=== PATIENT | female | born 1940 | race Caucasian/White ===

== ENCOUNTER 2022-09-04 14:02 | Inpatient (IN) | payer MEDICARE, OTHER ==
[2022-09-04 15:31] LABS: #Basophils 0.1 10x3/uL (0.0-0.2); #Eosinphils 0.5 10x3/uL (0.0-0.5); #Monocytes 0.4 10x3/uL (0.0-1.1); #Neutrophils 2.3 10x3/uL (1.5-8.4); %Basophils 1.2 % (0.0-2.0); %Eosinophils 12.4 % (0.0-6.0); %Lymphocytes 19.9 % (18.0-47.0); %Neutrophils 54.6 % (40.0-75.0); Mean Corpuscular HGB CONC 32.9 g/dL (32.0-36.0); Mean Corpuscular Hemoglobin 32.6 pg (27.0-33.0); Mean Corpuscular Volume 99.1 fl (81.6-98.3); Mean Platelet Volume 9.3 fl (7.4-10.4); Platelet Count 188 10x3/uL (150-450); RBC Distribution Width 12.8 % (11.5-14.5); Red Blood Cell (RBC) Count 3.37 10x6/uL (3.90-5.03); White Blood Cell (WBC) Count 4.3 10x3/uL (3.5-10.5)
[2022-09-04] MEDS ORDERED: Morphine 4 MG/ML VIAL ONE (15:40)
[2022-09-04 15:42] LABS: Anion Gap 13 mmol/L (10-20); BUN (Urea Nitrogen) 15 mg/dL (9.8-20.1); Calc. Creatinine Clearance 0 mL/min (70-130); Calcium 8.9 mg/dL (7.8-10.44); Carbon Dioxide 25 mmol/L (23-31); Chloride 103 mmol/L (98-107); Estimated GFR 58; Glucose 190 mg/dL (83-110); INR-International Normal Ratio 1.1; PTT 24.9 sec (22.0-33.0); Potassium 3.4 mmol/L (3.5-5.1); Prothrombin Time 11.5 sec (9.5-12.1); Sodium 138 mmol/L (136-145)
[2022-09-04] MEDS ORDERED: Ondansetron ODT 4 MG TAB PO PRN (16:24)
[2022-09-04] MEDS ORDERED: Calcium Carbonate 500 MG ChewTAB PO PRN (16:24)
[2022-09-04] MEDS ORDERED: Ondansetron PF 4 MG/2 ML Vial IVP PRN (16:24)
[2022-09-04] MEDS ORDERED: Acetaminophen 325 MG TAB PO PRN (16:24)
[2022-09-04] MEDS ORDERED: Senokot S 8.6-50 MG TAB PO PRN (16:24)
[2022-09-04] MEDS ORDERED: Dextrose 5% in Water 1,000 ML IV PRN (16:27)
[2022-09-04] MEDS ORDERED: Dextrose 50% Abboject 50 ML SYRINGE SLOW IVP PRN (16:27)
[2022-09-04] MEDS ORDERED: HumaLOG 300 UNITS/3 ML VIAL SC PRN ×2 (16:27)
[2022-09-04] MEDS ORDERED: Potassium Chloride 20 MEQ TAB PO SCH (16:30)
[2022-09-04] MEDS ORDERED: Morphine 2 MG/ML VIAL SLOW IVP PRN (17:00)
[2022-09-04] MEDS ORDERED: Potassium Chloride 20 MEQ TAB ONE (18:34)
[2022-09-04] MEDS ORDERED: Famotidine 20 MG TAB PO SCH (21:00)
[2022-09-04] MEDS: Morphine 2 MG/ML VIAL SLOW IVP PRN (22:31)
[2022-09-04] MEDS: Carvedilol 25 MG TAB PO SCH (22:33)
[2022-09-04] MEDS ORDERED: Sodium Chloride 0.9% 1,000 ML IV SCH (23:59)
[2022-09-05 03:15] VITALS: BMI 17.9
[2022-09-05] MEDS: Morphine 2 MG/ML VIAL SLOW IVP PRN ×2 (06:14→10:04)
[2022-09-05 06:27] LABS: ALT (SGPT) Less than 6 U/L (8-55); AST (SGOT) 22 U/L (5-34); Alkaline Phosphatase 52 U/L (40-110); Anion Gap 14 mmol/L (10-20); BUN (Urea Nitrogen) 10 mg/dL (9.8-20.1); Bilirubin, Total 0.6 mg/dL (0.2-1.2); Calc. Creatinine Clearance 44 mL/min (70-130); Calcium 8.8 mg/dL (7.8-10.44); Carbon Dioxide 23 mmol/L (23-31); Chloride 107 mmol/L (98-107); Estimated GFR 73; Globulin 4.2 g/dL (2.4-3.5); Glucose 151 mg/dL (83-110); Potassium 3.8 mmol/L (3.5-5.1); Protein, Total 7.2 g/dL (5.8-8.1); Sodium 140 mmol/L (136-145)
[2022-09-05 07:18] LABS: #Basophils 0.1 10x3/uL (0.0-0.2); #Eosinphils 0.7 10x3/uL (0.0-0.5); #Monocytes 0.5 10x3/uL (0.0-1.1); %Basophils 1.3 % (0.0-2.0); %Eosinophils 13.6 % (0.0-6.0); %Lymphocytes 17.2 % (18.0-47.0); %Neutrophils 57.1 % (40.0-75.0); Mean Corpuscular HGB CONC 32.2 g/dL (32.0-36.0); Mean Corpuscular Hemoglobin 32.3 pg (27.0-33.0); Mean Corpuscular Volume 100.3 fl (81.6-98.3); Mean Platelet Volume 10.1 fl (7.4-10.4); Platelet Count 185 10x3/uL (150-450); RBC Distribution Width 13.1 % (11.5-14.5); Red Blood Cell (RBC) Count 3.41 10x6/uL (3.90-5.03); White Blood Cell (WBC) Count 5.3 10x3/uL (3.5-10.5)
[2022-09-05 07:22] LABS: Prothrombin Time 10.9 sec (9.5-12.1)
[2022-09-05] MEDS ORDERED: Electrolyte Replacement Protocol 1 EACH FS SCH (07:30)
[2022-09-05 08:18] LABS: Magnesium 1.7 mg/dL (1.6-2.6)
[2022-09-05 08:20] LABS: Phosphorus 2.4 mg/dL (2.3-4.7)
[2022-09-05] MEDS ORDERED: Magnesium 2 GM/50 ML(in water) 2 GM in Premix Bag 1 BAG IVPB SCH (09:00)
[2022-09-05] MEDS: Lisinopril 10 MG TAB PO SCH (10:05)
[2022-09-05] MEDS: Famotidine 20 MG TAB PO SCH (10:06)
[2022-09-05] MEDS: Digoxin 0.125 MG TAB PO SCH (10:06)
[2022-09-05] MEDS: Spironolactone 25 MG TAB PO SCH (10:06)
[2022-09-05] MEDS: Carvedilol 25 MG TAB PO SCH ×2 (10:06→23:02)
[2022-09-05 12:22] LABS: SARS-CoV-2 NAA Rapid Test Not Detected (NotDetected)
[2022-09-05] MEDS ORDERED: PROPOFOL 20 ML ONE (13:14)
[2022-09-05] MEDS ORDERED: Fentanyl 100 MCG/2 ML VIAL ONE (13:14)
[2022-09-05] MEDS ORDERED: Ondansetron PF 4 MG/2 ML Vial ONE (13:15)
[2022-09-05] MEDS ORDERED: Neomycin-Polymyxin 1 ML AMP ONE (13:17)
[2022-09-05] MEDS ORDERED: CEFAZOLIN 2 GM VIAL ONE (13:37)
[2022-09-05] MEDS ORDERED: Ketamine 50 MG/ML (10ML VIAL) ONE (13:43)
[2022-09-05] MEDS ORDERED: TETANUS, DIPHTHERIA TOX,ADULT (TDVAX) 0.5 ML VIAL IM ONE (14:34)
[2022-09-05] MEDS ORDERED: Communication Order-Pharmacy FS SCH (14:45)
[2022-09-05] MEDS: HYDROcodone/Acetaminophen 5/325 mg Tablet PO PRN (23:01)
[2022-09-05] MEDS: Senokot S 8.6-50 MG TAB PO SCH (23:02)
[2022-09-05] MEDS: CEFAZOLIN 2 GM in Sodium Chloride 0.9% 100 ML IVPB SCH (23:02)
[2022-09-06] MEDS: HYDROcodone/Acetaminophen 5/325 mg Tablet PO PRN ×5 (03:15→22:03)
[2022-09-06 04:24] LABS: #Eosinphils 0.3 10x3/uL (0.0-0.5); #Monocytes 0.6 10x3/uL (0.0-1.1); #Neutrophils 2.2 10x3/uL (1.5-8.4); %Lymphocytes 25.2 % (18.0-47.0); %Monocytes 14.4 % (0.0-10.0); %Neutrophils 52.9 % (40.0-75.0); Hemoglobin 9.2 g/dL (12.0-15.5); Mean Corpuscular HGB CONC 32.1 g/dL (32.0-36.0); Mean Corpuscular Hemoglobin 32.2 pg (27.0-33.0); Mean Corpuscular Volume 100.3 fl (81.6-98.3); Mean Platelet Volume 9.9 fl (7.4-10.4); Platelet Count 147 10x3/uL (150-450); RBC Distribution Width 13.2 % (11.5-14.5); Red Blood Cell (RBC) Count 2.86 10x6/uL (3.90-5.03); White Blood Cell (WBC) Count 4.2 10x3/uL (3.5-10.5)
[2022-09-06 04:38] LABS: Anion Gap 11 mmol/L (10-20); BUN (Urea Nitrogen) 11 mg/dL (9.8-20.1); Calc. Creatinine Clearance 43 mL/min (70-130); Calcium 8.7 mg/dL (7.8-10.44); Carbon Dioxide 26 mmol/L (23-31); Chloride 107 mmol/L (98-107); Estimated GFR 70; Glucose 94 mg/dL (83-110); Magnesium 1.7 mg/dL (1.6-2.6); Potassium 3.9 mmol/L (3.5-5.1); Sodium 140 mmol/L (136-145)
[2022-09-06] MEDS ORDERED: Magnesium 2 GM/50 ML(in water) 2 GM in Premix Bag 1 BAG IVPB SCH (05:00)
[2022-09-06] MEDS: CEFAZOLIN 2 GM in Sodium Chloride 0.9% 100 ML IVPB SCH (06:08)
[2022-09-06] MEDS: Famotidine 20 MG TAB PO SCH (08:59)
[2022-09-06] MEDS: Senokot S 8.6-50 MG TAB PO SCH ×2 (08:59→22:04)
[2022-09-06] MEDS: Cyanocobalamin (Vitamin B-12) 1,000 MCG TAB PO SCH (09:00)
[2022-09-06] MEDS: Digoxin 0.125 MG TAB PO SCH (09:01)
[2022-09-06] MEDS: Lisinopril 10 MG TAB PO SCH (09:01)
[2022-09-06] MEDS: Spironolactone 25 MG TAB PO SCH (09:01)
[2022-09-06] MEDS: Folic Acid 1 MG TAB PO SCH (09:01)
[2022-09-06] MEDS: Carvedilol 25 MG TAB PO SCH ×2 (09:01→22:04)
[2022-09-07] MEDS: HYDROcodone/Acetaminophen 5/325 mg Tablet PO PRN ×5 (01:51→21:48)
[2022-09-07 07:06] LABS: Magnesium 2.1 mg/dL (1.6-2.6)
[2022-09-07] MEDS: Lisinopril 10 MG TAB PO SCH (10:10)
[2022-09-07] MEDS: Cyanocobalamin (Vitamin B-12) 1,000 MCG TAB PO SCH (10:12)
[2022-09-07] MEDS: Aspirin 81 mg Enteric Coated Tablet PO SCH (10:12)
[2022-09-07] MEDS: Digoxin 0.125 MG TAB PO SCH (10:12)
[2022-09-07] MEDS: Folic Acid 1 MG TAB PO SCH (10:12)
[2022-09-07] MEDS: Spironolactone 25 MG TAB PO SCH (10:13)
[2022-09-07] MEDS: Famotidine 20 MG TAB PO SCH (10:14)
[2022-09-07] MEDS ORDERED: Carvedilol 6.25 MG TAB PO SCH (10:15)
[2022-09-07] MEDS: Carvedilol 25 MG TAB PO SCH (10:15)
[2022-09-07] MEDS: Senokot S 8.6-50 MG TAB PO SCH ×2 (11:37→21:49)
[2022-09-07] MEDS: Carvedilol 6.25 MG TAB PO SCH (21:49)
[2022-09-08 06:04] LABS: #Eosinphils 0.4 10x3/uL (0.0-0.5); #Monocytes 0.4 10x3/uL (0.0-1.1); #Neutrophils 1.7 10x3/uL (1.5-8.4); %Basophils 0.9 % (0.0-2.0); %Eosinophils 12.6 % (0.0-6.0); %Lymphocytes 22.1 % (18.0-47.0); %Monocytes 11.4 % (0.0-10.0); %Neutrophils 52.4 % (40.0-75.0); Hemoglobin 9.2 g/dL (12.0-15.5); Mean Corpuscular HGB CONC 31.8 g/dL (32.0-36.0); Mean Corpuscular Hemoglobin 32.3 pg (27.0-33.0); Mean Corpuscular Volume 101.4 fl (81.6-98.3); Mean Platelet Volume 9.5 fl (7.4-10.4); Platelet Count 150 10x3/uL (150-450); RBC Distribution Width 12.9 % (11.5-14.5); Red Blood Cell (RBC) Count 2.85 10x6/uL (3.90-5.03); White Blood Cell (WBC) Count 3.2 10x3/uL (3.5-10.5)
[2022-09-08 06:15] LABS: Anion Gap 12 mmol/L (10-20); BUN (Urea Nitrogen) 10 mg/dL (9.8-20.1); Calc. Creatinine Clearance 53 mL/min (70-130); Calcium 8.9 mg/dL (7.8-10.44); Carbon Dioxide 26 mmol/L (23-31); Chloride 107 mmol/L (98-107); Estimated GFR 88; Glucose 88 mg/dL (83-110); Potassium 3.6 mmol/L (3.5-5.1); Sodium 141 mmol/L (136-145)
[2022-09-08] MEDS: Famotidine 20 MG TAB PO SCH (09:20)
[2022-09-08] MEDS: Lisinopril 10 MG TAB PO SCH (09:20)
[2022-09-08] MEDS: Folic Acid 1 MG TAB PO SCH (09:21)
[2022-09-08] MEDS: Cyanocobalamin (Vitamin B-12) 1,000 MCG TAB PO SCH (09:21)
[2022-09-08] MEDS: Digoxin 0.125 MG TAB PO SCH (09:21)
[2022-09-08] MEDS: Aspirin 81 mg Enteric Coated Tablet PO SCH (09:21)
[2022-09-08] MEDS: Carvedilol 6.25 MG TAB PO SCH ×2 (09:21→21:06)
[2022-09-08] MEDS: Spironolactone 25 MG TAB PO SCH (09:21)
[2022-09-08] MEDS: HYDROcodone/Acetaminophen 5/325 mg Tablet PO PRN ×2 (09:31→21:09)
[2022-09-08] MEDS: Polyethylene Glycol 3350 17 GM Packet PO PRN (16:37)
[2022-09-08] MEDS: Senokot S 8.6-50 MG TAB PO SCH ×2 (16:37→21:06)
[2022-09-09] MEDS: tiZANidine HCl 4 MG TAB PO PRN (08:54)
[2022-09-09] MEDS: Folic Acid 1 MG TAB PO SCH (08:54)
[2022-09-09] MEDS: Loratadine 10 MG TAB PO PRN (08:54)
[2022-09-09] MEDS: Cyanocobalamin (Vitamin B-12) 1,000 MCG TAB PO SCH (08:54)
[2022-09-09] MEDS: Digoxin 0.125 MG TAB PO SCH (08:54)
[2022-09-09] MEDS: Aspirin 81 mg Enteric Coated Tablet PO SCH (08:54)
[2022-09-09] MEDS: Carvedilol 6.25 MG TAB PO SCH ×2 (08:54→22:10)
[2022-09-09] MEDS: Lisinopril 10 MG TAB PO SCH ×2 (08:54→22:10)
[2022-09-09] MEDS: Famotidine 20 MG TAB PO SCH (08:54)
[2022-09-09] MEDS: Spironolactone 25 MG TAB PO SCH (08:54)
[2022-09-09] MEDS: Senokot S 8.6-50 MG TAB PO SCH ×2 (09:36→22:10)
[2022-09-09] MEDS: HYDROcodone/Acetaminophen 5/325 mg Tablet PO PRN (11:22)
[2022-09-10] MEDS: HYDROcodone/Acetaminophen 5/325 mg Tablet PO PRN ×4 (06:04→21:09)
[2022-09-10] MEDS: Polyethylene Glycol 3350 17 GM Packet PO PRN (08:52)
[2022-09-10] MEDS: Furosemide 20 MG TAB PO SCH (08:53)
[2022-09-10] MEDS: Famotidine 20 MG TAB PO SCH (08:53)
[2022-09-10] MEDS: Spironolactone 25 MG TAB PO SCH (08:53)
[2022-09-10] MEDS: Lisinopril 10 MG TAB PO SCH ×2 (08:53→21:10)
[2022-09-10] MEDS: tiZANidine HCl 4 MG TAB PO PRN (08:53)
[2022-09-10] MEDS: Digoxin 0.125 MG TAB PO SCH (08:53)
[2022-09-10] MEDS: Aspirin 81 mg Enteric Coated Tablet PO SCH (08:53)
[2022-09-10] MEDS: Carvedilol 6.25 MG TAB PO SCH ×2 (08:53→21:11)
[2022-09-10] MEDS: Cyanocobalamin (Vitamin B-12) 1,000 MCG TAB PO SCH (08:53)
[2022-09-10] MEDS: Folic Acid 1 MG TAB PO SCH (08:53)
[2022-09-10] MEDS: Loratadine 10 MG TAB PO PRN (08:53)
[2022-09-10] MEDS: Senokot S 8.6-50 MG TAB PO SCH ×2 (08:54→22:38)
[2022-09-11] MEDS: HYDROcodone/Acetaminophen 5/325 mg Tablet PO PRN ×2 (05:09→08:33)
[2022-09-11] MEDS: Digoxin 0.125 MG TAB PO SCH (08:32)
[2022-09-11] MEDS: Polyethylene Glycol 3350 17 GM Packet PO PRN (08:32)
[2022-09-11] MEDS: Aspirin 81 mg Enteric Coated Tablet PO SCH (08:32)
[2022-09-11] MEDS: Lisinopril 10 MG TAB PO SCH (08:32)
[2022-09-11] MEDS: Folic Acid 1 MG TAB PO SCH (08:33)
[2022-09-11] MEDS: Furosemide 20 MG TAB PO SCH (08:33)
[2022-09-11] MEDS: Cyanocobalamin (Vitamin B-12) 1,000 MCG TAB PO SCH (08:33)
[2022-09-11] MEDS: Spironolactone 25 MG TAB PO SCH (08:33)
[2022-09-11] MEDS: Loratadine 10 MG TAB PO PRN (08:33)
[2022-09-11] MEDS: Carvedilol 6.25 MG TAB PO SCH (08:33)
[2022-09-11] MEDS: Famotidine 20 MG TAB PO SCH (08:33)
[2022-09-11] MEDS: Senokot S 8.6-50 MG TAB PO SCH (08:34)
[2022-09-11 12:56] VITALS: TEMP 98.1
[2022-09-11 13:48] VITALS: BP 128/68
[2022-09-11] MEDS ORDERED: Famotidine 20 MG TAB PO SCH (21:00)
== END 2022-09-11 15:22 | DRG 481 ==
LOC: SUATTDRO 14:02 → CSHERS 14:02 → CSHTELE 20:53
PROVIDERS: ADMIT Internal Medicine; ATTEND Family Medicine
PROC: 0QS704Z Reposition Left Upper Femur with Internal Fixation Device, Open Approach (ICD-10-PCS; principal; 2022-09-05)
PROC: 0PSJXZZ Reposition Left Radius, External Approach (ICD-10-PCS; 2022-09-05)
DX: S72.012A Unspecified intracapsular fracture of left femur, initial encounter for closed fracture (principal); I42.9 Cardiomyopathy, unspecified; I48.21 Permanent atrial fibrillation; I50.22 Chronic systolic (congestive) heart failure; S52.572A Other intraarticular fracture of lower end of left radius, initial encounter for closed fracture; S52.692A Other fracture of lower end of left ulna, initial encounter for closed fracture; S52.502A Unspecified fracture of the lower end of left radius, initial encounter for closed fracture; Z66 Do not resuscitate; I11.0 Hypertensive heart disease with heart failure; E11.9 Type 2 diabetes mellitus without complications; I25.10 Atherosclerotic heart disease of native coronary artery without angina pectoris; W18.30XA Fall on same level, unspecified, initial encounter; E87.6 Hypokalemia; E83.42 Hypomagnesemia; Z95.0 Presence of cardiac pacemaker; Z79.82 Long term (current) use of aspirin; Z79.899 Other long term (current) drug therapy; Z20.822 Contact with and (suspected) exposure to COVID-19
CPT/HCPCS: 29105; 36415; 36416; 80048; 80053; 83735; 84100; 84484; 85025; 85610; 85730; 93005; 93010; 94760; 94762; 96374; C1713; C1769; J1650; J2270; J2272; J2405; J2704; J3010; J3475; J3490; J7050; U0002

== ENCOUNTER 2023-01-29 09:43 | Outpatient (CLI) | payer OTHER | END 2023-01-29 09:44 | disposition home or self-care (01) | LOC: CSHMAMMO 09:43 | PROVIDERS: ATTEND Internal Medicine Endocrinology, Diabetes & Metabolism | DX: M81.0 Age-related osteoporosis without current pathological fracture (principal) | CPT/HCPCS: 77080 ==

== ENCOUNTER 2023-11-20 10:17 | Outpatient (CLI) | payer OTHER | END 2023-11-20 10:18 | disposition home or self-care (01) | LOC: CSHRAD 10:17 | PROVIDERS: ATTEND Nurse Practitioner | DX: I47.20 Ventricular tachycardia, unspecified (principal) | CPT/HCPCS: 71046 ==

== ENCOUNTER 2023-11-22 10:29 | Emergency (ER) | payer OTHER ==
[2023-11-22 11:13] LABS: #Eosinphils 1.18 10x3/uL (0.0-0.5); #Neutrophils 3.05 10x3/uL (1.5-8.4); %Basophils 1.5 % (0.0-2.0); %Eosinophils 17.5 % (0.0-6.0); %Lymphocytes 24.6 % (18.0-47.0); %Monocytes 10.4 % (0.0-10.0); %Neutrophils 45.1 % (40.0-75.0); Hematocrit 40.8 % (34.9-44.5); Mean Corpuscular HGB CONC 34.3 g/dL (32.0-36.0); Mean Corpuscular Hemoglobin 31.7 pg (27.0-33.0); Mean Corpuscular Volume 92.5 fL (81.6-98.3); Mean Platelet Volume 10.1 fL (7.4-10.4); Platelet Count 249 10x3/uL (150-450); RBC Distribution Width 14.1 % (11.5-14.5); Red Blood Cell (RBC) Count 4.41 10x6/uL (3.90-5.03); White Blood Cell (WBC) Count 6.8 10x3/uL (3.5-10.5)
[2023-11-22 11:37] LABS: ALT (SGPT) 8 U/L (8-55); AST (SGOT) 28 U/L (5-34); Albumin 3.6 g/dL (3.4-4.8); Alkaline Phosphatase 59 U/L (40-110); Anion Gap 15 mmol/L (10-20); BUN (Urea Nitrogen) 24 mg/dL (9.8-20.1); Bilirubin, Total 0.7 mg/dL (0.2-1.2); Calc. Creatinine Clearance 0 mL/min (70-130); Calcium 9.9 mg/dL (7.8-10.44); Carbon Dioxide 25 mmol/L (23-31); Chloride 101 mmol/L (98-107); Estimated GFR 55; Globulin 4.9 g/dL (2.4-3.5); Glucose 139 mg/dL (83-110); Lipase 94 U/L (8-78); Potassium 3.3 mmol/L (3.5-5.1); Protein, Total 8.5 g/dL (5.8-8.1); Sodium 138 mmol/L (136-145)
[2023-11-22 11:43] LABS: Troponin I 0.025 ng/mL (< 0.028)
[2023-11-22] MEDS ORDERED: Potassium Chloride 20 MEQ TAB ONE (11:51)
== END 2023-11-22 12:46 | disposition short-term general hospital (02) ==
LOC: CSHERS 10:29
DX: I49.01 Ventricular fibrillation (principal); E11.9 Type 2 diabetes mellitus without complications; I50.9 Heart failure, unspecified; Z79.4 Long term (current) use of insulin
CPT/HCPCS: 71045; 80053; 83690; 83880; 84484; 85025; 93005

== ENCOUNTER 2024-02-01 16:58 | Inpatient (IN) | payer OTHER ==
[2024-02-01 18:22] LABS: #Basophils 0.08 10x3/uL (0.0-0.2); #Eosinphils 1.07 10x3/uL (0.0-0.5); #Neutrophils 2.29 10x3/uL (1.5-8.4); %Basophils 1.4 % (0.0-2.0); %Eosinophils 18.6 % (0.0-6.0); %Lymphocytes 29.2 % (18.0-47.0); %Monocytes 10.4 % (0.0-10.0); %Neutrophils 39.7 % (40.0-75.0); Hematocrit 36.5 % (34.9-44.5); Hemoglobin 12.2 g/dL (12.0-15.5); Mean Corpuscular HGB CONC 33.4 g/dL (32.0-36.0); Mean Corpuscular Hemoglobin 32.9 pg (27.0-33.0); Mean Corpuscular Volume 98.4 fL (81.6-98.3); Mean Platelet Volume 9.2 fL (7.4-10.4); Platelet Count 275 10x3/uL (150-450); RBC Distribution Width 14.6 % (11.5-14.5); Red Blood Cell (RBC) Count 3.71 10x6/uL (3.90-5.03); White Blood Cell (WBC) Count 5.8 10x3/uL (3.5-10.5)
[2024-02-01 18:41] LABS: ALT (SGPT) 11 U/L (8-55); AST (SGOT) 21 U/L (5-34); Albumin 3.3 g/dL (3.4-4.8); Alkaline Phosphatase 66 U/L (40-110); Anion Gap 14 mmol/L (10-20); BUN (Urea Nitrogen) 20 mg/dL (9.8-20.1); Bilirubin, Total 0.5 mg/dL (0.2-1.2); Calc. Creatinine Clearance 0 mL/min (70-130); Calcium 9.3 mg/dL (7.8-10.44); Carbon Dioxide 24 mmol/L (23-31); Chloride 105 mmol/L (98-107); Estimated GFR 45; Globulin 3.8 g/dL (2.4-3.5); Glucose 142 mg/dL (83-110); Potassium 3.2 mmol/L (3.5-5.1); Protein, Total 7.1 g/dL (5.8-8.1); Sodium 140 mmol/L (136-145)
[2024-02-01 18:48] LABS: Troponin I 0.019 ng/mL (< 0.028)
[2024-02-01] MEDS ORDERED: Magnesium 2 GM/50 ML BAG (IN WATER) ONE (19:01)
[2024-02-01] MEDS ORDERED: Potassium Bicarbonate/Cit Ac 25 MEQ TAB ONE (19:10)
[2024-02-01 19:30] LABS: Bilirubin Neg (Negative); Blood, Urine Negative (Negative); Clarity Clear (Clear); Glucose, Urine (Dipstick) 250 mg/dL (Negative); Ketone, Urine Negative (Negative); Leukocyte 25 (Negative); Nitrite Negative (Negative); Protein, Urine (Dipstick) 15 mg/dl (Neg-Trace); Specific Gravity, Urine 1.005 (1.005-1.030); Urobilinogen Normal mg/dL (Less than 2)
[2024-02-01] MEDS ORDERED: Acetaminophen 650 MG Suppository PR PRN (19:32)
[2024-02-01] MEDS ORDERED: Acetaminophen 325 MG TAB PO PRN (19:32)
[2024-02-01] MEDS ORDERED: Ondansetron PF 4 MG/2 ML Vial IVP PRN (19:32)
[2024-02-01] MEDS ORDERED: Ondansetron ODT 4 MG TAB PO PRN (19:32)
[2024-02-01] MEDS ORDERED: NS 0.9% w/ 20 MEQ KCL 1,000 ML ONE (19:40)
[2024-02-01 19:45] LABS: Magnesium 2.3 mg/dL (1.6-2.6)
[2024-02-01] MEDS ORDERED: Sodium Chloride 0.9% 1,000 ML IV SCH (19:45)
[2024-02-01 19:59] LABS: CAUTI Indications for Culture Alt mental st,lethar
[2024-02-01 20:00] LABS: Bacteria/HPF 1+ HPF (None Seen)
[2024-02-01 20:01] LABS: Urine Culture Reflex No No
[2024-02-01] MEDS ORDERED: Dextrose 5% in Water 1,000 ML IV PRN (20:07)
[2024-02-01] MEDS ORDERED: Glucagon 1 MG/ML KIT IM PRN (20:07)
[2024-02-01] MEDS ORDERED: Dextrose 50% Abboject 50 ML SYRINGE SLOW IVP PRN (20:07)
[2024-02-01] MEDS ORDERED: Insulin Lispro 100 UNIT/ML 10 ML VIAL SC PRN (20:07)
[2024-02-01 21:29] VITALS: BMI 18.1
[2024-02-01] MEDS: Potassium Chloride 20 MEQ in Premix 1 BAG IVPB SCH (22:11)
[2024-02-02 00:24] LABS: Anion Gap 13 mmol/L (10-20); BUN (Urea Nitrogen) 18 mg/dL (9.8-20.1); Calc. Creatinine Clearance 32 mL/min (70-130); Calcium 9.3 mg/dL (7.8-10.44); Carbon Dioxide 26 mmol/L (23-31); Chloride 107 mmol/L (98-107); Estimated GFR 49; Glucose 170 mg/dL (83-110); Magnesium 2.7 mg/dL (1.6-2.6); Phosphorus 3.3 mg/dL (2.3-4.7); Potassium 4.1 mmol/L (3.5-5.1); Sodium 142 mmol/L (136-145)
[2024-02-02 00:30] LABS: Troponin I 0.017 ng/mL (< 0.028)
[2024-02-02 04:46] LABS: #Basophils 0.09 10x3/uL (0.0-0.2); #Eosinphils 1.26 10x3/uL (0.0-0.5); #Monocytes 0.76 10x3/uL (0.0-1.1); #Neutrophils 2.15 10x3/uL (1.5-8.4); %Basophils 1.4 % (0.0-2.0); %Lymphocytes 31.8 % (18.0-47.0); %Monocytes 12.1 % (0.0-10.0); %Neutrophils 34.2 % (40.0-75.0); Hematocrit 37.1 % (34.9-44.5); Hemoglobin 12.3 g/dL (12.0-15.5); Mean Corpuscular HGB CONC 33.2 g/dL (32.0-36.0); Mean Corpuscular Volume 99.5 fL (81.6-98.3); Mean Platelet Volume 9.3 fL (7.4-10.4); Platelet Count 300 10x3/uL (150-450); RBC Distribution Width 14.8 % (11.5-14.5); Red Blood Cell (RBC) Count 3.73 10x6/uL (3.90-5.03); White Blood Cell (WBC) Count 6.3 10x3/uL (3.5-10.5)
[2024-02-02 04:59] LABS: Phosphorus 3.1 mg/dL (2.3-4.7)
[2024-02-02 05:00] LABS: Anion Gap 17 mmol/L (10-20); BUN (Urea Nitrogen) 17 mg/dL (9.8-20.1); Calc. Creatinine Clearance 32 mL/min (70-130); Calcium 9.1 mg/dL (7.8-10.44); Carbon Dioxide 23 mmol/L (23-31); Chloride 110 mmol/L (98-107); Estimated GFR 50; Glucose 98 mg/dL (83-110); Magnesium 2.7 mg/dL (1.6-2.6); Potassium 4.5 mmol/L (3.5-5.1); Sodium 145 mmol/L (136-145)
[2024-02-02 05:01] LABS: Troponin I 0.022 ng/mL (< 0.028)
[2024-02-02] MEDS: Amiodarone 200 MG TAB PO SCH ×2 (09:29→20:46)
[2024-02-02] MEDS: Losartan 50 MG TAB PO SCH (09:29)
[2024-02-02] MEDS: Carvedilol 12.5 MG TAB PO SCH ×2 (09:30→16:23)
[2024-02-02] MEDS: Enoxaparin 40 MG (0.4 mL) SYRINGE SC SCH (09:30)
[2024-02-02] MEDS: Spironolactone 25 MG TAB PO SCH (09:30)
[2024-02-02] MEDS ORDERED: Communication Order-Pharmacy FS SCH (15:45)
[2024-02-02] MEDS: Empagliflozin 10 MG TAB PO SCH (20:46)
[2024-02-03 04:17] LABS: Anion Gap 14 mmol/L (10-20); BUN (Urea Nitrogen) 15 mg/dL (9.8-20.1); Calc. Creatinine Clearance 35 mL/min (70-130); Calcium 8.7 mg/dL (7.8-10.44); Carbon Dioxide 22 mmol/L (23-31); Chloride 111 mmol/L (98-107); Estimated GFR 56; Glucose 108 mg/dL (83-110); Magnesium 2.3 mg/dL (1.6-2.6); Potassium 3.8 mmol/L (3.5-5.1); Sodium 143 mmol/L (136-145)
[2024-02-03] MEDS: Pioglitazone HCl 15 MG TAB PO SCH (04:53)
[2024-02-03] MEDS ORDERED: Heparin 10,000 UNITS/ 10 ML VIAL ONE (07:10)
[2024-02-03] MEDS ORDERED: Lidocaine 1% (PF) 30 ML VIAL ONE (07:10)
[2024-02-03] MEDS ORDERED: Iopamidol 300 61% 100 ML VIAL FS ONE (07:44)
[2024-02-03] MEDS ORDERED: PHENYLEPHRINE-NS 100 MCG/ML 10 ML SYRINGE ONE (08:02)
[2024-02-03] MEDS ORDERED: Atropine Sulfate 1 mg/1 ml Vial ONE (08:02)
[2024-02-03] MEDS ORDERED: Midazolam HCl 2 mg/2 ml Vial ONE (08:02)
[2024-02-03] MEDS ORDERED: fentaNYL 50 mcg/mL 1 mL Vial ONE (08:02)
[2024-02-03] MEDS ORDERED: Nitroglycerin 50 MG/250 ML BOT 0 ML ONE (08:02)
[2024-02-03] MEDS ORDERED: Acetaminophen/Codeine 30-300mg Tablet PO PRN ×2 (09:11)
[2024-02-03] MEDS ORDERED: Sodium Chloride 0.9% 200 ML IV PRN (09:11)
[2024-02-03] MEDS ORDERED: Nitroglycerin 0.4 MG TAB (25 Tab Bottle) SL PRN (09:11)
[2024-02-03 11:40] VITALS: BMI 18.1
[2024-02-03] MEDS: Potassium Chloride 10 MEQ TAB PO SCH (12:26)
[2024-02-03] MEDS: Aspirin 81 mg Enteric Coated Tablet PO SCH (12:40)
[2024-02-03] MEDS: Mexiletine HCl 150 MG CAP PO SCH (16:21)
[2024-02-04 11:50] VITALS: TEMP 98.2
[2024-02-04 16:31] VITALS: BP 154/79
== END 2024-02-04 17:29 | disposition home or self-care (01) | DRG 287 ==
LOC: SUATTDRO 16:58 → CSHERS 16:58 → CSHTELE 19:32
PROVIDERS: ADMIT Family Medicine; ATTEND Family Medicine
PROC: 4A023N7 Measurement of Cardiac Sampling and Pressure, Left Heart, Percutaneous Approach (ICD-10-PCS; principal; 2024-02-03)
PROC: B2111ZZ Fluoroscopy of Multiple Coronary Arteries using Low Osmolar Contrast (ICD-10-PCS; 2024-02-03)
PROC: B2151ZZ Fluoroscopy of Left Heart using Low Osmolar Contrast (ICD-10-PCS; 2024-02-03)
DX: I49.01 Ventricular fibrillation (principal); I50.42 Chronic combined systolic (congestive) and diastolic (congestive) heart failure; E87.6 Hypokalemia; I25.10 Atherosclerotic heart disease of native coronary artery without angina pectoris; E11.9 Type 2 diabetes mellitus without complications; E78.5 Hyperlipidemia, unspecified; I48.21 Permanent atrial fibrillation; I11.0 Hypertensive heart disease with heart failure; Z95.0 Presence of cardiac pacemaker; Z79.899 Other long term (current) drug therapy; Z79.82 Long term (current) use of aspirin
CPT/HCPCS: 36415; 36416; 71045; 80048; 80053; 81001; 83735; 83880; 84100; 84443; 84484; 85025; 93005; 93010; 93306; 93458; 93880; 94762; 96374; 99152; C1760; C1769; J0461; J1644; J1650; J2001; J2250; J3010; J3475; J3480; Q9967

== ENCOUNTER 2024-03-30 10:44 | Outpatient (CLI) | payer OTHER | END 2024-03-30 10:45 | disposition home or self-care (01) | LOC: CSHMAMMO 10:44 | PROVIDERS: ATTEND Internal Medicine Endocrinology, Diabetes & Metabolism | DX: M81.8 Other osteoporosis without current pathological fracture (principal) | CPT/HCPCS: 77080 ==

== ENCOUNTER 2024-05-16 17:13 | Inpatient (IN) | payer OTHER ==
[2024-05-16 18:43] LABS: #Basophils 0.05 10x3/uL (0.0-0.2); #Eosinophils 0.24 10x3/uL (0.0-0.5); #Monocytes 0.64 10x3/uL (0.0-1.1); #Neutrophils 2.17 10x3/uL (1.5-8.4); %Basophils 1.2 % (0.0-2.0); %Eosinophils 5.8 % (0.0-6.0); %Lymphocytes 24.8 % (18.0-47.0); %Monocytes 15.4 % (0.0-10.0); %Neutrophils 52.1 % (40.0-75.0); Hematocrit 36.5 % (34.9-44.5); Hemoglobin 12.3 g/dL (12.0-15.5); Mean Corpuscular HGB CONC 33.7 g/dL (32.0-36.0); Mean Corpuscular Hemoglobin 32.5 pg (27.0-33.0); Mean Corpuscular Volume 96.3 fL (81.6-98.3); Mean Platelet Volume 9.2 fL (7.4-10.4); Platelet Count 244 10x3/uL (150-450); RBC Distribution Width 14.4 % (11.5-14.5); Red Blood Cell (RBC) Count 3.79 10x6/uL (3.90-5.03); White Blood Cell (WBC) Count 4.2 10x3/uL (3.5-10.5)
[2024-05-16 18:49] LABS: Anion Gap 14 mmol/L (10-20); BUN (Urea Nitrogen) 11 mg/dL (9.8-20.1); Carbon Dioxide 23 mmol/L (23-31); Chloride 107 mmol/L (98-107); Sodium 141 mmol/L (136-145)
[2024-05-16 18:50] LABS: ALT (SGPT) 16 U/L (8-55); AST (SGOT) 26 U/L (5-34); Albumin 3.1 g/dL (3.4-4.8); Alkaline Phosphatase 71 U/L (40-110); Bilirubin, Total 0.8 mg/dL (0.2-1.2); Calc. Creatinine Clearance 0 mL/min (70-130); Calcium 9.4 mg/dL (7.8-10.44); Estimated GFR 59; Globulin 3.8 g/dL (2.4-3.5); Glucose 124 mg/dL (83-110); Protein, Total 6.9 g/dL (5.8-8.1)
[2024-05-16] MEDS ORDERED: Potassium Chloride 20 MEQ TAB ONE (20:05)
[2024-05-16] MEDS ORDERED: Furosemide 40 MG (4 mL) VIAL ONE (20:05)
[2024-05-16] MEDS ORDERED: Potassium Chloride 20 MEQ (100 mL) BAG ONE (20:06)
[2024-05-16] MEDS ORDERED: Insulin Lispro 100 UNIT/ML 10 ML VIAL SC PRN ×2 (20:23)
[2024-05-16] MEDS ORDERED: Dextrose 5% in Water 1,000 ML IV PRN (20:23)
[2024-05-16] MEDS ORDERED: Dextrose 50% Abboject 50 ML SYRINGE SLOW IVP PRN (20:23)
[2024-05-16] MEDS ORDERED: Glucagon 1 MG/ML KIT IM PRN (20:23)
[2024-05-16 20:48] LABS: Magnesium 1.8 mg/dL (1.6-2.6)
[2024-05-16 21:26] VITALS: BMI 20.2
[2024-05-16 23:07] LABS: Anion Gap 15 mmol/L (10-20); BUN (Urea Nitrogen) 11 mg/dL (9.8-20.1); Calc. Creatinine Clearance 36 mL/min (70-130); Calcium 9.8 mg/dL (7.8-10.44); Carbon Dioxide 27 mmol/L (23-31); Chloride 106 mmol/L (98-107); Estimated GFR 53; Glucose 122 mg/dL (83-110); Potassium 4.2 mmol/L (3.5-5.1); Sodium 144 mmol/L (136-145)
[2024-05-16] MEDS ORDERED: Sodium Chloride 0.65% Nasal 44 ML BOT EA NARE PRN (23:33)
[2024-05-16 23:42] LABS: Magnesium 1.9 mg/dL (1.6-2.6)
[2024-05-17 04:51] LABS: #Basophils 0.06 10x3/uL (0.0-0.2); #Eosinophils 0.28 10x3/uL (0.0-0.5); #Monocytes 0.66 10x3/uL (0.0-1.1); #Neutrophils 2.07 10x3/uL (1.5-8.4); %Basophils 1.5 % (0.0-2.0); %Eosinophils 6.9 % (0.0-6.0); %Lymphocytes 23.5 % (18.0-47.0); %Monocytes 16.3 % (0.0-10.0); %Neutrophils 51.1 % (40.0-75.0); Hematocrit 35.8 % (34.9-44.5); Hemoglobin 11.8 g/dL (12.0-15.5); Mean Corpuscular Hemoglobin 32.2 pg (27.0-33.0); Mean Corpuscular Volume 97.5 fL (81.6-98.3); Mean Platelet Volume 9.4 fL (7.4-10.4); Platelet Count 242 10x3/uL (150-450); RBC Distribution Width 14.6 % (11.5-14.5); Red Blood Cell (RBC) Count 3.67 10x6/uL (3.90-5.03); White Blood Cell (WBC) Count 4.1 10x3/uL (3.5-10.5)
[2024-05-17 05:09] LABS: Anion Gap 13 mmol/L (10-20); BUN (Urea Nitrogen) 10 mg/dL (9.8-20.1); Calc. Creatinine Clearance 41 mL/min (70-130); Carbon Dioxide 28 mmol/L (23-31); Chloride 107 mmol/L (98-107); Estimated GFR 60; Glucose 100 mg/dL (83-110); Magnesium 1.7 mg/dL (1.6-2.6); Potassium 3.1 mmol/L (3.5-5.1); Sodium 145 mmol/L (136-145)
[2024-05-17] MEDS: Mexiletine HCl 150 MG CAP PO SCH (06:03)
[2024-05-17] MEDS: Potassium Chloride 20 MEQ TAB PO SCH ×2 (06:03→14:27)
[2024-05-17] MEDS: Magnesium 2 GM/50 ML(in water) 2 GM in Premix 1 BAG IVPB SCH (06:04)
[2024-05-17] MEDS: Furosemide 40 MG (4 mL) VIAL SLOW IVP SCH (07:28)
[2024-05-17] MEDS: Aspirin 81 mg Enteric Coated Tablet PO SCH (08:56)
[2024-05-17] MEDS: Amiodarone 200 MG TAB PO SCH (08:56)
[2024-05-17] MEDS: Spironolactone 25 MG TAB PO SCH (08:57)
[2024-05-17] MEDS: Acetaminophen 325 MG TAB PO PRN (08:57)
[2024-05-17] MEDS: Enoxaparin 40 MG (0.4 mL) SYRINGE SC SCH (09:02)
[2024-05-17] MEDS: Carvedilol 12.5 MG TAB PO SCH (09:02)
[2024-05-17 11:25] LABS: Anion Gap 14 mmol/L (10-20); BUN (Urea Nitrogen) 10 mg/dL (9.8-20.1); Calc. Creatinine Clearance 46 mL/min (70-130); Calcium 8.7 mg/dL (7.8-10.44); Carbon Dioxide 27 mmol/L (23-31); Chloride 107 mmol/L (98-107); Estimated GFR 57; Glucose 154 mg/dL (83-110); Potassium 3.5 mmol/L (3.5-5.1); Sodium 144 mmol/L (136-145)
[2024-05-17] MEDS: Empagliflozin 10 MG TAB PO SCH (21:59)
[2024-05-18 04:53] LABS: #Basophils 0.04 10x3/uL (0.0-0.2); #Eosinophils 0.34 10x3/uL (0.0-0.5); #Monocytes 0.72 10x3/uL (0.0-1.1); #Neutrophils 2.15 10x3/uL (1.5-8.4); %Eosinophils 8.1 % (0.0-6.0); %Monocytes 17.2 % (0.0-10.0); %Neutrophils 51.2 % (40.0-75.0); Hematocrit 38.3 % (34.9-44.5); Mean Corpuscular HGB CONC 31.3 g/dL (32.0-36.0); Mean Corpuscular Hemoglobin 31.3 pg (27.0-33.0); Mean Corpuscular Volume 99.7 fL (81.6-98.3); Mean Platelet Volume 9.6 fL (7.4-10.4); Platelet Count 240 10x3/uL (150-450); RBC Distribution Width 14.6 % (11.5-14.5); Red Blood Cell (RBC) Count 3.84 10x6/uL (3.90-5.03); White Blood Cell (WBC) Count 4.2 10x3/uL (3.5-10.5)
[2024-05-18 05:04] LABS: Anion Gap 13 mmol/L (10-20); BUN (Urea Nitrogen) 14 mg/dL (9.8-20.1); Calc. Creatinine Clearance 45 mL/min (70-130); Calcium 9.3 mg/dL (7.8-10.44); Carbon Dioxide 30 mmol/L (23-31); Chloride 107 mmol/L (98-107); Estimated GFR 55; Glucose 103 mg/dL (83-110); Iron 32 ug/dL (50-170); Iron Binding Capacity, Total 279 mcg/dL (265-497); Potassium 4.2 mmol/L (3.5-5.1); Sodium 146 mmol/L (136-145)
[2024-05-18] MEDS: Valsartan 80 MG TAB PO SCH (09:00)
[2024-05-18] MEDS: Ondansetron PF 4 MG/2 ML Vial IVP PRN (21:03)
[2024-05-19 04:30] LABS: Anion Gap 13 mmol/L (10-20); BUN (Urea Nitrogen) 13 mg/dL (9.8-20.1); Calc. Creatinine Clearance 34 mL/min (70-130); Calcium 9.4 mg/dL (7.8-10.44); Carbon Dioxide 33 mmol/L (23-31); Chloride 101 mmol/L (98-107); Estimated GFR 55; Glucose 118 mg/dL (83-110); Magnesium 1.9 mg/dL (1.6-2.6); Potassium 3.6 mmol/L (3.5-5.1); Sodium 143 mmol/L (136-145)
[2024-05-19] MEDS: FLU (Fluad Triv) TS24-25 (65UP)/MF59C/PF 45 MCG/0.5 ML Syringe IM ONE (07:47)
[2024-05-19] MEDS: Magnesium Oxide 400 MG TAB PO SCH (08:58)
[2024-05-20 08:38] LABS: Anion Gap 13 mmol/L (10-20); BUN (Urea Nitrogen) 13 mg/dL (9.8-20.1); Calc. Creatinine Clearance 38 mL/min (70-130); Calcium 9.7 mg/dL (7.8-10.44); Carbon Dioxide 35 mmol/L (23-31); Chloride 99 mmol/L (98-107); Estimated GFR 63; Glucose 108 mg/dL (83-110); Potassium 3.6 mmol/L (3.5-5.1); Sodium 143 mmol/L (136-145)
[2024-05-20] MEDS: Furosemide 40 MG TAB PO SCH (10:05)
[2024-05-20] MEDS: Montelukast Sodium 10 mg Tablet PO SCH ×2 (15:05→21:19)
[2024-05-20] MEDS: Fluticasone Propionate Nasal Spray 16 gm Bottle NASAL SCH (15:10)
[2024-05-21 12:19] VITALS: BP 141/70; TEMP 98.2
== END 2024-05-21 16:16 | disposition home or self-care (01) | DRG 291 ==
LOC: CSHERS 17:13 → CSHTELE 19:58
PROVIDERS: ADMIT Internal Medicine; ATTEND Internal Medicine
DX: I11.0 Hypertensive heart disease with heart failure (principal); I50.33 Acute on chronic diastolic (congestive) heart failure; J96.01 Acute respiratory failure with hypoxia; I48.21 Permanent atrial fibrillation; I50.22 Chronic systolic (congestive) heart failure; I25.10 Atherosclerotic heart disease of native coronary artery without angina pectoris; E78.5 Hyperlipidemia, unspecified; E11.65 Type 2 diabetes mellitus with hyperglycemia; E87.6 Hypokalemia; Z95.810 Presence of automatic (implantable) cardiac defibrillator; Z79.82 Long term (current) use of aspirin; Z79.899 Other long term (current) drug therapy
CPT/HCPCS: 36415; 36416; 71046; 80048; 80053; 82728; 83540; 83550; 83735; 83880; 85025; 85379; 87428; 93005; 94760; 94762; 96374; 96375; J1650; J1940; J2405; J3475; J3480

== ENCOUNTER 2024-06-17 14:55 | Emergency (ER) | payer OTHER | END 2024-06-17 16:59 | disposition home or self-care (01) | LOC: CSHERS 14:55 | DX: S60.222A Contusion of left hand, initial encounter (principal); R07.89 Other chest pain; I48.91 Unspecified atrial fibrillation; I25.10 Atherosclerotic heart disease of native coronary artery without angina pectoris; I11.0 Hypertensive heart disease with heart failure; I50.9 Heart failure, unspecified; E11.9 Type 2 diabetes mellitus without complications; W01.198A Fall on same level from slipping, tripping and stumbling with subsequent striking against other object, initial encounter; Y92.008 Other place in unspecified non-institutional (private) residence as the place of occurrence of the external cause; Z79.4 Long term (current) use of insulin; Z95.810 Presence of automatic (implantable) cardiac defibrillator; Z79.899 Other long term (current) drug therapy | CPT/HCPCS: 70450; 72170 ==